=== PATIENT | female | born 1965 | race Caucasian/White ===

== ENCOUNTER 2022-02-24 12:36 | Outpatient (CLI) | payer MEDICAID, SELFPAY | END 2022-02-24 12:37 | disposition home or self-care (01) | LOC: LKVREF 03-04 11:05 | PROVIDERS: PCP Family Medicine; Visit Provider Student in an Organized Health Care Education/Training Program | DX: R30.0 Dysuria (principal); N39.0 Urinary tract infection, site not specified; R10.9 Unspecified abdominal pain | CPT/HCPCS: 87086 ==

== ENCOUNTER 2022-07-12 16:57 | Outpatient (CLI) | payer MEDICAID, SELFPAY ==
[2022-07-12 21:57] LABS: Chloride* 99 mmol/L (96-114); Potassium* 4.1 mmol/L (3.6-5.1); Sodium* 136 mmol/L (135-149)
[2022-07-12 22:00] LABS: Blood Urea Nitrogen* 13 mg/dL (7-30); Carbon Dioxide* 28 mmol/L (20-32); Cholesterol* 254 mg/dL (90-199); Creatinine* 1.1 mg/dL (0.5-1.5); Estimated Glomerular Filt Rate 59 ml/min; Glucose* 95 mg/dL (60-115)
[2022-07-12 22:01] LABS: Calcium* 9.8 mg/dL (8.4-10.6); HDL Cholesterol* 105 mg/dL (>=50); LDL Cholesterol Calculated 134 mg/dL (<100); Triglycerides* 76 mg/dL (40-149)
== END 2022-07-12 16:58 | disposition home or self-care (01) ==
PROVIDERS: PCP Family Medicine; Visit Provider Family Medicine
DX: Z00.00 Encounter for general adult medical examination without abnormal findings (principal); E78.00 Pure hypercholesterolemia, unspecified; I10 Essential (primary) hypertension; R30.0 Dysuria; R79.89 Other specified abnormal findings of blood chemistry
CPT/HCPCS: 80048; 80061

== ENCOUNTER 2023-09-28 14:45 | Outpatient (CLI) | payer MEDICAID, SELFPAY | END 2023-09-28 14:46 | disposition home or self-care (01) | LOC: NFLDREF 10-04 12:16 | PROVIDERS: PCP Family Medicine; Referring Provider Family Medicine; Visit Provider Family Medicine | DX: I10 Essential (primary) hypertension (principal); E78.00 Pure hypercholesterolemia, unspecified; R79.89 Other specified abnormal findings of blood chemistry; L70.0 Acne vulgaris | CPT/HCPCS: 80053; 80061 ==

== ENCOUNTER 2024-10-03 15:36 | Outpatient (CLI) | payer MEDICAID, SELFPAY | END 2024-10-03 15:37 | disposition home or self-care (01) | LOC: LKVREF 15:40 | PROVIDERS: PCP Family Medicine; Visit Provider Family Medicine | DX: E78.00 Pure hypercholesterolemia, unspecified (principal); R79.89 Other specified abnormal findings of blood chemistry; I10 Essential (primary) hypertension; R53.83 Other fatigue; F41.8 Other specified anxiety disorders | CPT/HCPCS: 80053; 80061; 84443 ==